=== PATIENT | male | born 1970 | race Caucasian/White ===

== ENCOUNTER 2020-07-29 00:22 | Emergency (ER) | payer OTHER ==
[~2020-07-29] VITALS: Ht 190.5 cm; Wt 102.2 kg
[2020-07-29 01:43] LABS: HEMATOCRIT 42.5 % (39.0-50.0); IMMATURE GRANULOCYTES 0.3 % (0.0-5.0); MEAN CELL VOLUME 90.4 fL CALC (80.0-100.0); MEAN CORPUSCULAR HGB 29.8 pG CALC (26.0-32.0); MEAN CORPUSCULAR HGB CONC 32.9 g/dL CAL (32.0-36.0); NEUT# 6.87 thou/uL (1.82-7.42); RED BLOOD COUNT 4.7 mill/uL (4.70-6.10); RED CELL DISTRI WIDTH 12.3 % (11.5-15.5)
[2020-07-29 02:10] LABS: ALBUMIN 4.1 g/dL (3.2-5.0); ALKALINE PHOSPHATASE 52 u/l (38-126); ANION GAP 11 (6-22 (CALC)); BILIRUBIN, TOTAL 0.5 mg/dL (0.0-1.4); BUN 10 mg/dL (9-20); BUN/CREATININE RATIO 12 (12-20 (CALC)); CARBON DIOXIDE 26 mmol/l (22-30); CHLORIDE 106 mmol/l (95-108); CREATININE 0.9 mg/dL (0.7-1.3); GFR > 60 ML/MIN (>=60 (CALC)); GFR FOR AFR.AMER. > 60 ML/MIN (>=60 (CALC)); POTASSIUM 3.8 mmol/l (3.5-5.1); SGOT/AST 18 u/l (17-59); SODIUM 139 mmol/l (137-146); TOTAL PROTEIN 6.7 g/dL (6.3-8.2)
[2020-07-29] MEDS ORDERED: NAPROXEN500 MG PO (02:23)
[2020-07-29 02:30] VITALS: BP 138/77
== END 2020-07-29 02:33 | disposition home or self-care (01) | DRG 603 ==
LOC: ED 00:22
PROVIDERS: Emergency Medicine
DX: L03.115 Cellulitis of right lower limb (principal); S80.861A Insect bite (nonvenomous), right lower leg, initial encounter; I25.10 Atherosclerotic heart disease of native coronary artery without angina pectoris; W57.XXXA Bitten or stung by nonvenomous insect and other nonvenomous arthropods, initial encounter

== ENCOUNTER 2022-05-04 12:42 | Emergency (ER) | payer OTHER ==
[~2022-05-04] VITALS: Ht 182.9 cm; Wt 100.0 kg
[2022-05-04] VITALS (11 sets, daily range): BP systolic 116–140; BP diastolic 74–87
[~2022-05-04 12:42] MED LIST: NAPROXEN500 MG PO
[2022-05-04 13:12] LABS: HEMATOCRIT 48.4 % (39.0-50.0); IMMATURE GRANULOCYTES 0.1 % (0.0-5.0); MEAN CELL VOLUME 90.1 fL CALC (80.0-100.0); MEAN CORPUSCULAR HGB 30.5 pG CALC (26.0-32.0); MEAN CORPUSCULAR HGB CONC 33.9 g/dL CAL (32.0-36.0); NEUT# 8.24 thou/uL (1.82-7.42); RED BLOOD COUNT 5.37 mill/uL (4.70-6.10); RED CELL DISTRI WIDTH 11.9 % (11.5-15.5)
[2022-05-04 13:32] LABS: HEMOGLOBIN 16.4 g/dl (14.0-18.0)
[2022-05-04 13:36] LABS: CREATININE 1.5 mg/dL (0.7-1.3); MAGNESIUM 2.1 mg/dL (1.6-2.3); POTASSIUM 4.1 mmol/l (3.5-5.1)
[2022-05-04 13:39] LABS: ALBUMIN 5.1 g/dL (3.2-5.0); BILIRUBIN, TOTAL 1.7 mg/dL (0.0-1.4); TOTAL PROTEIN 8.3 g/dL (6.3-8.2)
[2022-05-04 14:20] LABS: URINE BILIRUBIN - DIPSTICK NEGATIVE (NEGATIVE); URINE BLOOD DIPSTICK NEGATIVE (NEGATIVE); URINE COLOR YELLOW; URINE GLUCOSE - DIPSTICK NEGATIVE (NEGATIVE); URINE KETONE TRACE mg/dL (NEGATIVE); URINE LEUK ESTERASE NEGATIVE (NEGATIVE); URINE PH 6.5 (4.5-8.0); URINE PROTEIN - DIPSTICK NEGATIVE (NEG-TRACE); URINE SPECIFIC GRAVITY <=1.005; URINE UROBILINOGEN - DIPSTICK 0.2 E.U./dL (0.2)
[2022-05-04 14:31] LABS: URINE NITRITE - DIPSTICK NEGATIVE (Negative)
== END 2022-05-04 15:03 | DRG 641 ==
LOC: ED 12:42
PROVIDERS: Nurse Practitioner
DX: E86.0 Dehydration (principal); X30.XXXA Exposure to excessive natural heat, initial encounter; Y92.148 Other place in prison as the place of occurrence of the external cause